=== PATIENT | male | born 1955 | race Caucasian/White ===

== ENCOUNTER 2020-07-24 08:10 | Outpatient (CLI) | payer OTHER ==
[2020-07-24] MEDS ORDERED: Iopamidol 370 76% 100 ML VIAL ONE (09:05)
--- NOTE | 2020-07-24 11:27 | CT ---
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 COMPARISON: Prior CT of the chest, abdomen, and pelvis dated 04/25/2020. FINDINGS: No suspicious pulmonary nodule or pleural effusion is evident. There is stable mild ectasia of the ascending aorta measuring 4.1 cm. There is coronary artery and t horacic aorta calcifications. No enlarged lymph nodes are seen within the mediastinum, hilar, or axi llary regions. No focal hepatic lesion is evident. The gallbladder, pancreas, adrenal glands, spleen, and kidneys r eveal no acute abnormality. There are mild to moderate vascular calcifications involving the abdominopelvic vasculature. No free fluid or enlarged lymph nodes are grossly evident within the abdomen. The bladder, rectum, and perirectal soft tissues are unremarkable-appearing. The prostate gland measures 3.3 cm. Small and large bowel appear within normal limits. The appendix is not definitely seen. No free fluid or enlarged lymph nodes are evident within the pelvis. There is diffuse scattered osteoblastic metastatic disease involving the axial and visualized appendi cular skeleton. No definite pathologic fracture is evident. IMPRESSION: 1. Stable diffuse osseous metastatic disease. 2. No evidence of additional metastatic disease in the chest, abdomen, or pelvis. 3. Stable mild ectasia of the ascending aorta measuring 4.1 cm. POS: AH
--- NOTE | 2020-07-24 12:20 | NM ---
WHOLE BODY BONE SCAN: HISTORY: Malignant neoplasm of prostate. RADIOPHARMACEUTICAL: 30 mCi technetium 99m-MDP injected intravenously COMPARISON:04/25/2020 CORRELATION: CT chest, abdomen and pelvis from today FINDINGS: Numerous foci of abnormally increased tracer localization are seen and better visualized on the curre nt exam including the skull, scapulae, spine, ribs, pelvic bones, left proximal femur and proximal humeri. There scattered degenerative activity in the appendicular skeleton. Tracer excretion through the kidneys is within normal limits. IMPRESSION: Widespread osseous metastatic disease.
== END 2020-07-24 08:11 | disposition home or self-care (01) ==
LOC: CT 08:10
PROVIDERS: ATTEND Internal Medicine Hematology & Oncology
DX: C61 Malignant neoplasm of prostate (principal); C79.51 Secondary malignant neoplasm of bone; I77.810 Thoracic aortic ectasia
CPT/HCPCS: 71260; 74177; 78306; 82565; A9503; Q9967

== ENCOUNTER 2021-02-21 12:57 | Outpatient (CLI) | payer OTHER ==
[~2021-02-21 12:57] MED LIST: Magnevist 469MG/ML 20 ML VIAL ONE
== END 2021-02-21 12:58 | disposition home or self-care (01) ==
LOC: BICMRI 12:57
PROVIDERS: ATTEND Internal Medicine Hematology & Oncology
DX: C61 Malignant neoplasm of prostate (principal); C79.51 Secondary malignant neoplasm of bone; M79.652 Pain in left thigh; M25.552 Pain in left hip; C79.89 Secondary malignant neoplasm of other specified sites; R93.7 Abnormal findings on diagnostic imaging of other parts of musculoskeletal system
CPT/HCPCS: A9579

== ENCOUNTER 2021-05-31 12:46 | Outpatient (CLI) | payer BC | END 2021-05-31 12:47 | disposition home or self-care (01) | LOC: MRI 12:46 | PROVIDERS: ATTEND Internal Medicine Hematology & Oncology | DX: C61 Malignant neoplasm of prostate (principal); C79.51 Secondary malignant neoplasm of bone | CPT/HCPCS: 70553 ==

== ENCOUNTER 2021-06-14 11:41 | Day surgery (SDC) | payer BC ==
[2021-06-14] MEDS ORDERED: diphenhydrAMINE 25 MG CAP PO SCH (12:15)
[2021-06-14] MEDS ORDERED: Acetaminophen 500 MG TAB PO SCH (12:15)
[2021-06-14 15:02] VITALS: BP 138/71; TEMP 97.9
== END 2021-06-14 15:02 | disposition home or self-care (01) ==
LOC: ONC/OP 11:41
PROVIDERS: ATTEND Internal Medicine Hematology & Oncology
PROC: 30233N1 Transfusion of Nonautologous Red Blood Cells into Peripheral Vein, Percutaneous Approach (ICD-10-PCS; principal; 2021-06-14)
DX: D64.9 Anemia, unspecified (principal); D69.6 Thrombocytopenia, unspecified
CPT/HCPCS: 36430; 86850; 86900; 86901; P9016; Q0163

== ENCOUNTER 2021-06-29 08:37 | Day surgery (SDC) | payer BC ==
[2021-06-28 17:49] VITALS: BMI 26.4
[2021-06-29 09:21] LABS: INR-International Normal Ratio 0.9; Prothrombin Time 11.7 sec (12.0-14.7)
[2021-06-29 09:22] LABS: PTT 28.2 sec (22.9-36.1)
[2021-06-29 10:04] VITALS: BP 135/87; TEMP 97.8
[2021-06-29 12:18] LABS: BF Color Brown; Body Fluid Source Abscess Fluid; Clarity Cloudy/Turbid (Clear); Tube # EDTA
== END 2021-06-29 11:55 | disposition home or self-care (01) ==
LOC: CT 08:37
PROVIDERS: ATTEND Internal Medicine Hematology & Oncology
PROC: 0W9H3ZZ Drainage of Retroperitoneum, Percutaneous Approach (ICD-10-PCS; principal; 2021-06-29)
DX: K68.12 Psoas muscle abscess (principal); C61 Malignant neoplasm of prostate; C79.51 Secondary malignant neoplasm of bone; C7A.8 Other malignant neuroendocrine tumors; I10 Essential (primary) hypertension; K21.9 Gastro-esophageal reflux disease without esophagitis; Z79.899 Other long term (current) drug therapy
CPT/HCPCS: 36415; 49060; 77012; 85060; 85610; 85730; 87070; 87077; 87186; 87205; 89051

== ENCOUNTER 2021-08-02 12:54 | Outpatient (CLI) | payer BC | END 2021-08-02 12:55 | disposition home or self-care (01) | LOC: ULT 12:54 | PROVIDERS: ATTEND Internal Medicine Hematology & Oncology | DX: R60.0 Localized edema (principal); M79.602 Pain in left arm; C78.7 Secondary malignant neoplasm of liver and intrahepatic bile duct; C7A.8 Other malignant neuroendocrine tumors; C79.51 Secondary malignant neoplasm of bone; C61 Malignant neoplasm of prostate; I82.612 Acute embolism and thrombosis of superficial veins of left upper extremity ==

== ENCOUNTER 2021-09-28 08:57 | Day surgery (SDC) | payer BC, MEDICARE ==
[2021-09-28] MEDS ORDERED: diphenhydrAMINE 25 MG CAP ONE (09:42)
[2021-09-28] MEDS ORDERED: Acetaminophen 500 MG TAB ONE (09:42)
[2021-09-28 12:39] VITALS: BP 162/74; TEMP 98.2
== END 2021-09-28 12:40 | disposition home or self-care (01) ==
LOC: ONC/OP 08:57
PROVIDERS: ATTEND Internal Medicine Hematology & Oncology
PROC: 30233N1 Transfusion of Nonautologous Red Blood Cells into Peripheral Vein, Percutaneous Approach (ICD-10-PCS; principal; 2021-09-28)
DX: D64.9 Anemia, unspecified (principal); D69.6 Thrombocytopenia, unspecified
CPT/HCPCS: 36430; 86850; 86900; 86901; P9016

== ENCOUNTER 2021-10-16 09:33 | Outpatient (CLI) | payer MEDICARE | END 2021-10-16 09:34 | disposition home or self-care (01) | LOC: NM 09:33 | PROVIDERS: ATTEND Internal Medicine Hematology & Oncology | DX: C79.51 Secondary malignant neoplasm of bone (principal); C61 Malignant neoplasm of prostate; C78.7 Secondary malignant neoplasm of liver and intrahepatic bile duct; C7A.8 Other malignant neuroendocrine tumors | CPT/HCPCS: 78306; A9503 ==

== ENCOUNTER 2021-10-24 14:27 | Inpatient (IN) | payer MEDICARE ==
[~2021-10-24 14:27] MED LIST changes: +Iopamidol 370 76% 100 ML VIAL ONE; -Magnevist 469MG/ML 20 ML VIAL ONE
[2021-10-24] MEDS ORDERED: Ondansetron PF 4 MG/2 ML Vial ONE (14:43)
[2021-10-24] MEDS ORDERED: Morphine 4 MG/ML VIAL ONE ×2 (14:43→14:55)
[2021-10-24 15:07] LABS: #Eosinphils 0.1 thou/uL (0.0-0.7); #Lymphocytes 0.7 thou/uL (1.20-3.40); #Neutrophils 7.9 thou/uL (1.40-6.50); %Basophils 0.3 % (0.0-1.0); %Eosinophils 0.9 % (0.0-10.0); %Lymphocytes 7.3 % (21.0-51.0); %Monocytes 10.5 % (0.0-10.0); Hemoglobin 10.5 g/dL (14.0-18.0); Mean Corpuscular HGB CONC 32.6 g/dL (32.0-36.0); Mean Corpuscular Hemoglobin 31.6 pg (27.0-31.0); Mean Corpuscular Volume 96.9 fL (78.0-98.0); Mean Platelet Volume 7.4 fL (7.4-10.4); Platelet Count 304 thou/uL (130-400); RBC Distribution Width 17.8 % (11.5-14.5); Red Blood Cell (RBC) Count 3.32 mill/uL (4.70-6.10); White Blood Cell (WBC) Count 9.8 thou/uL (4.8-10.8)
[2021-10-24 15:34] LABS: ALT (SGPT) 464 U/L (8-55); AST (SGOT) 533 U/L (5-34); Albumin 3.3 g/dL (3.4-4.8); Alkaline Phosphatase 512 U/L (40-110); Anion Gap 18 mmol/L (10-20); BUN (Urea Nitrogen) 34 mg/dL (8.4-25.7); Bilirubin, Total 0.8 mg/dL (0.2-1.2); Calc. Creatinine Clearance 0 mL/min (70-130); Calcium 9.5 mg/dL (7.8-10.44); Carbon Dioxide 21 mmol/L (23-31); Chloride 104 mmol/L (98-107); Globulin 3.6 g/dL (2.4-3.5); Glucose 125 mg/dL (80-115); Potassium 4.9 mmol/L (3.5-5.1); Protein, Total 6.9 g/dL (5.8-8.1); Sodium 138 mmol/L (136-145)
[2021-10-24] MEDS ORDERED: Fentanyl 100 MCG/2 ML VIAL ONE (15:37)
[2021-10-24 17:01] LABS: SARS-CoV-2 NAA Rapid Test Not Detected (NotDetected)
[2021-10-24] MEDS ORDERED: Lorazepam 0.5 MG TAB PO PRN (17:01)
[2021-10-24] MEDS ORDERED: Senokot 8.6 MG TAB PO PRN (17:01)
[2021-10-24] MEDS ORDERED: Ondansetron PF 4 MG/2 ML Vial IVP PRN ×2 (17:04→18:25)
[2021-10-24] MEDS ORDERED: HYDROmorphone 0.5 MG/0.5 ML SYRINGE ONE (17:08)
[2021-10-24] MEDS ORDERED: Magnesium Citrate 300 ML BOT PO SCH (18:00)
[2021-10-24] MEDS ORDERED: Dexamethasone 4 MG TAB PO SCH (18:00)
[2021-10-24] MEDS ORDERED: diphenhydrAMINE 50 MG/ML VIAL IVP PRN (18:25)
[2021-10-24] MEDS ORDERED: diphenhydrAMINE 25 MG CAP PO PRN (18:25)
[2021-10-24] MEDS ORDERED: diphenhydrAMINE 50 MG/ML VIAL IM PRN (18:25)
[2021-10-24] MEDS ORDERED: Zolpidem Tartrate 5 MG TAB PO PRN (18:25)
[2021-10-24] MEDS ORDERED: Naloxone HCl 0.4 mg/ml Vial IV PRN (18:25)
[2021-10-24] MEDS ORDERED: Promethazine HCl 25 MG/ML VIAL IM PRN (18:25)
[2021-10-24] MEDS ORDERED: Communication Order-Pharmacy FS SCH (18:30)
[2021-10-24] MEDS ORDERED: fentaNYL Citrate/PF 2,000 MCG in Sodium Chloride 0.9% 60 ML IV PRN (19:15)
[2021-10-24] MEDS: Lactated Ringer's 1,000 ML IV SCH (20:46)
[2021-10-24 22:52] VITALS: BMI 24.3
[2021-10-25] MEDS ORDERED: Pantoprazole 40 MG VIAL IVP SCH (00:15)
[2021-10-25] MEDS ORDERED: ALPRAZolam 1 MG TAB PO PRN (00:19)
[2021-10-25] MEDS ORDERED: ALPRAZolam 0.5 MG TAB PO PRN (00:32)
[2021-10-25] MEDS ORDERED: HYDROmorphone 0.5 MG/0.5 ML SYRINGE SLOW IVP PRN (01:20)
[2021-10-25] MEDS: fentaNYL Citrate/PF 2,000 MCG in Sodium Chloride 0.9% 60 ML IV PRN ×2 (05:40→20:10)
[2021-10-25 06:12] LABS: #Eosinphils 0.1 thou/uL (0.0-0.7); #Lymphocytes 0.8 thou/uL (1.20-3.40); #Monocytes 0.9 thou/uL (0.11-0.59); #Neutrophils 8.6 thou/uL (1.40-6.50); %Basophils 0.1 % (0.0-1.0); %Eosinophils 0.9 % (0.0-10.0); %Lymphocytes 7.4 % (21.0-51.0); %Monocytes 8.7 % (0.0-10.0); Hemoglobin 9.7 g/dL (14.0-18.0); Mean Corpuscular HGB CONC 31.8 g/dL (32.0-36.0); Mean Corpuscular Hemoglobin 31.3 pg (27.0-31.0); Mean Corpuscular Volume 98.2 fL (78.0-98.0); Mean Platelet Volume 7.5 fL (7.4-10.4); Platelet Count 304 thou/uL (130-400); RBC Distribution Width 17.7 % (11.5-14.5); Red Blood Cell (RBC) Count 3.09 mill/uL (4.70-6.10); White Blood Cell (WBC) Count 10.3 thou/uL (4.8-10.8)
[2021-10-25 06:30] LABS: Anion Gap 14 mmol/L (10-20); BUN (Urea Nitrogen) 29 mg/dL (8.4-25.7); Calc. Creatinine Clearance 102 mL/min (70-130); Calcium 9.6 mg/dL (7.8-10.44); Carbon Dioxide 25 mmol/L (23-31); Chloride 101 mmol/L (98-107); Glucose 110 mg/dL (80-115); Potassium 4.8 mmol/L (3.5-5.1); Sodium 135 mmol/L (136-145)
[2021-10-25] MEDS ORDERED: Bisacodyl 10 MG SUPP PR PRN (07:18)
[2021-10-25] MEDS ORDERED: Bisacodyl 5 MG TAB PO PRN (07:18)
[2021-10-25] MEDS ORDERED: Fleet Enema 133 ML BOT FS SCH (09:15)
[2021-10-25] MEDS: Lactated Ringer's 1,000 ML IV SCH (09:36)
[2021-10-25] MEDS: Tamsulosin HCl 0.4 MG CAP PO SCH (09:38)
[2021-10-25] MEDS: DULoxetine 30 MG CAP PO SCH (09:38)
[2021-10-25] MEDS: Dexamethasone 4 MG TAB PO SCH ×2 (09:38→17:07)
[2021-10-25] MEDS: Senokot S 8.6-50 MG TAB PO SCH ×2 (09:38→20:09)
[2021-10-25] MEDS: Cholecalciferol 1,000 UNITS (25 MCG) TAB PO SCH (09:39)
[2021-10-25] MEDS: Amlodipine 10 MG TAB PO SCH (09:39)
[2021-10-25] MEDS: Gabapentin 300 MG CAP PO SCH ×3 (09:39→20:09)
[2021-10-25] MEDS: Pantoprazole 40 MG VIAL IVP SCH (09:39)
[2021-10-25] MEDS: OLANZapine 5 MG TAB PO SCH (09:39)
[2021-10-25] MEDS: Milk Of Magnesia 30 ML UDCUP PO SCH (09:39)
[2021-10-25] MEDS: Polyethylene Glycol 3350 17 GM Packet PO SCH ×2 (09:40→21:01)
[2021-10-25] MEDS ORDERED: fentaNYL 50 mcg/hour Patch TD SCH (11:00)
[2021-10-25] MEDS ORDERED: Lidocaine 2% PF 5 ML VIAL ONE (15:29)
[2021-10-25] MEDS ORDERED: Iopamidol-M 300 61% 15 ML VIAL ONE (15:29)
[2021-10-25] MEDS ORDERED: Sodium Chloride 0.9% (PF) 10 ML VIAL ONE (15:29)
[2021-10-25] MEDS ORDERED: Dexamethasone 10 MG/ML VIAL ONE (15:29)
[2021-10-25] MEDS ORDERED: Dexamethasone 4 mg/ml Vial ONE (15:29)
[2021-10-25] MEDS ORDERED: Bupivacaine 0.25% 10 ML VIAL ONE (15:29)
[2021-10-25] MEDS ORDERED: Albuterol Sulfate 2.5 mg/3 ml Neb EZPAP PRN (16:17)
[2021-10-25] MEDS ORDERED: HYDROcodone/Acetaminophen 10/325 mg Tablet PO PRN ×2 (19:37→19:38)
[2021-10-26 09:04] VITALS: BP 141/87; TEMP 98.3
[2021-10-26] MEDS: Dexamethasone 4 MG TAB PO SCH (09:17)
[2021-10-26] MEDS: Amlodipine 10 MG TAB PO SCH (09:18)
[2021-10-26] MEDS: Cholecalciferol 1,000 UNITS (25 MCG) TAB PO SCH (09:18)
[2021-10-26] MEDS: Gabapentin 300 MG CAP PO SCH (09:18)
[2021-10-26] MEDS: DULoxetine 30 MG CAP PO SCH (09:18)
[2021-10-26] MEDS: Milk Of Magnesia 30 ML UDCUP PO SCH (09:19)
[2021-10-26] MEDS: Senokot S 8.6-50 MG TAB PO SCH (09:20)
[2021-10-26] MEDS: Pantoprazole 40 MG VIAL IVP SCH (09:20)
[2021-10-26] MEDS: Polyethylene Glycol 3350 17 GM Packet PO SCH (09:20)
[2021-10-26] MEDS: Tamsulosin HCl 0.4 MG CAP PO SCH (09:20)
[2021-10-26] MEDS: OLANZapine 5 MG TAB PO SCH (09:20)
[2021-10-26] MEDS ORDERED: Ketorolac Tromethamine 30 MG/ML VIAL IVP SCH (10:15)
== END 2021-10-26 11:10 | disposition hospice, home (50) | DRG 543 ==
LOC: ERS 14:27 → ERHOLD 16:49 → MSONC 20:12 → OBSVTOIN 10-26 11:09
PROVIDERS: ADMIT Internal Medicine; ATTEND Family Medicine
PROC: 3E0R33Z Introduction of Anti-inflammatory into Spinal Canal, Percutaneous Approach (ICD-10-PCS; principal; 2021-10-25)
PROC: 3E0R3BZ Introduction of Anesthetic Agent into Spinal Canal, Percutaneous Approach (ICD-10-PCS; 2021-10-25)
PROC: B01B1ZZ Fluoroscopy of Spinal Cord using Low Osmolar Contrast (ICD-10-PCS; 2021-10-25)
DX: C79.51 Secondary malignant neoplasm of bone (principal); C78.7 Secondary malignant neoplasm of liver and intrahepatic bile duct; Z66 Do not resuscitate; Z51.5 Encounter for palliative care; C61 Malignant neoplasm of prostate; Z20.822 Contact with and (suspected) exposure to COVID-19; K21.9 Gastro-esophageal reflux disease without esophagitis; I10 Essential (primary) hypertension; M19.90 Unspecified osteoarthritis, unspecified site; M54.30 Sciatica, unspecified side; K59.00 Constipation, unspecified; F41.9 Anxiety disorder, unspecified; M54.31 Sciatica, right side; G89.29 Other chronic pain; G89.3 Neoplasm related pain (acute) (chronic); H35.30 Unspecified macular degeneration; Z79.899 Other long term (current) drug therapy; Z79.52 Long term (current) use of systemic steroids
CPT/HCPCS: 36415; 71045; 72131; 74177; 80048; 80053; 83605; 83880; 85025; 93005; 96374; 96375; 96376; C9113; G0378; J1100; J1170; J1885; J2001; J2270; J2405; J3010; J3490; J7120; J8540; Q9967; S0020; U0002